=== PATIENT | male | born 1975 | race Caucasian/White ===

== ENCOUNTER 2017-01-30 19:03 | Emergency (ER) | payer OTHER ==
[2017-01-30] MEDS ORDERED: DIAZEPAM 5 MG/ML SYRG ONE (19:06)
[2017-01-30] MEDS: DIAZEPAM 5 MG/ML SYRG IV ONE ×2 (19:08→19:26)
[2017-01-30] MEDS ORDERED: NORMAL SALINE 1,000 ML IV ONE (19:12)
[2017-01-30 19:25] LABS: Hematocrit 46.1 % (42.0-52.0); Hemoglobin 15.9 gm/dL (13.5-18.0); Mean Cell Volume 89.5 fl (78-100); Mean Corpuscular Hemoglobin 30.9 pg (27-31); Mean Corpuscular Hgb Conc 34.5 g/dl (32-36); Mean Platelet Volume 10.2 fl (6.0-9.5); Neutrophil # 6.9 K/mm3 (1.3-6.0); Neutrophil % 67.6 % (42-75.0); Platelet Count 268 K/mm3 (150-450); Red Blood Count 5.15 M/mm3 (4.7-6.0); Red Cell Distribution Width 12.4 % (11.5-14.0); White Blood Count 10.2 K/mm3 (4.0-10.5)
--- NOTE | 2017-01-30 19:32 | ERNOTE ---
<Avel Simmons - Last Filed: 01/30/17 19:23> Neuro HPI ER Record Presenting Symptoms: weakness, other - patient presents with seizure activity Time Seen by Provider: 01/30/17 19:10 Source: EMS notes reviewed, police Exam Limitations: clinical condition Immunizations: IMMUNIZATION HX History of Influenza Vaccine More Information Required Hx Pneumococcal Vaccination More Information Required Allergies/Adverse Reactions: Allergies Allergy/AdvReac Type Severity Reaction Status Date / Time No Known Allergies Allergy Verified 01/30/17 19:28 Home Medications: HOME MEDICATIONS Carbidopa/Levodopa 25/100 [Sinemet 25/100] 3 tab PO TID #270 tablet 05/23/15 [ Last Taken Unknown] Ondansetron [Zofran Odt] 4 mg PO Q4H PRN #10 tab 05/23/15 [Last Taken Unknown] Phenytoin Sodium Extended [Dilantin] 300 mg PO BID #60 capsule 05/23/15 [Last Taken Unknown] Tetrahydrz/Dext 70/Peg 400/Pvp [Eye Drops] 15 ml OP PRN PRN 05/23/15 [Last Taken Unknown] Phenytoin [Dilantin Suspension] 100 mg PO BID #60 tab 01/30/17 [Last Taken Unknown] - History of Present Illness Narrative: patient prisoner brought with episodes of seizures at long term unable to get hx from patient Review of Systems - Narrative Narrative: unable to have ros completed - Patient's Past Medical History Patient History - Medical: History Unknown, Seizures - Family History Father Family History - Medical: Other Mother Family History - Medical: Other - Social History Living Situations: other - Immunizations Hx Pneumococcal Vaccination: More Information Required to Determine History of Influenza Vaccine: More Information Required to Determine Physical Exam - Physical Exam General Appearance: Present: severe distress, other - patient actively sezing on arrival Eye Exam: Normal inspection: bilateral, PERRL: bilateral, EOMI: bilateral Ears, Nose, Throat: Present: normal ENT inspection Neck: Present: normal inspection, nontender Respiratory: Present: no respiratory distress, normal breath sounds, no accessory muscle use, chest nontender, lungs clear Cardiovascular/Chest: Present: regular rate, rhythm, no murmur, normal peripheral pulses Gastrointestinal/Abdominal: Present: normal bowel sounds, nontender, nondistended, soft, no organomegaly Extremity Exam: Present: normal inspection, decreased range of motion Neurological Exam: Present: motor weakness, disoriented to person, disoriented to time, disoriented to place, disoriented to situation Skin Exam: Present: normal color, warm/dry Lymphatic Exam: Present: no adenopathy ED Progress - Vital Signs Vital Signs: Vital Signs 01/30/17 01/30/17 19:10 19:22 Temperature 36.6 C Pulse Rate 108 H 104 H Respiratory 18 Rate Blood Pressure 123/73 O2 Sat by Pulse 97 Oximetry - Progress/Reassessment Chief Complaint: Seizure Activity Departure Clinical Impression: Generalized seizures - Departure Disposition: Care Home Condition: Good Instructions: Epilepsy, [id number] Prescriptions: Phenytoin [Dilantin Suspension] 100 mg PO BID #60 tab <Rachelle Byrd - Last Filed: 01/30/17 21:00> Neuro HPI ER Record Immunizations: IMMUNIZATION HX History of Influenza Vaccine More Information Required Hx Pneumococcal Vaccination More Information Required ED Progress - Vital Signs Vital Signs: Vital Signs 01/30/17 01/30/17 01/30/17 19:10 19:22 19:23 Temperature 36.6 C Pulse Rate 108 H 104 H 107 H Respiratory 18 18 Rate Blood Pressure 123/73 107/75 O2 Sat by Pulse 97 96 Oximetry 01/30/17 01/30/17 01/30/17 19:55 20:12 20:31 Temperature Pulse Rate 104 H 90 84 Respiratory 18 18 18 Rate Blood Pressure 121/81 111/72 107/70 O2 Sat by Pulse 98 96 96 Oximetry Plan - Plan Plan: Pt was seen and examined by previous examiner. History is that pt has seizures and supposed to be on Dilantin 100mg BID however has been out of his meds for the past four days. His Phenytoin level is lower than therapeutic and his head CT is negative. I discussed this case with Dr. Wayne, the neurologist at [facility] and ideally he would need Phosphenytoin 1000mg IV however I am being told by staff at this facility that Phosphenytoin is NOT available at this facility. As such he will be treated with Phenytoin 1000 mg IV and started on 100mg PO BID for maintenance
[2017-01-30 19:39] LABS: Albumin * 4.1 gm/dl (3.4-5.0); Anion Gap 23.6 mmol/L (6.8-13.8); BUN/Creatinine Ratio 15.2 (9.0-21.6); Bilirubin, Total 0.3 mg/dL (0.0-1.1); Ca. Corrected For Albumin 9.2 mg/dL (8.4-10.2); Calcium * 9.6 mg/dL (7.9-10.9); Carbon Dioxide 20.5 mmol/L (24-32.6); Potassium 4.1 mmol/L (3.4-4.6)
[2017-01-30] MEDS ORDERED: ACETAMINOPHEN 325 MG TABLET ONE (20:08)
[2017-01-30] MEDS ORDERED: ACETAMINOPHEN 325 MG TABLET PO ONE (20:09)
[2017-01-30] MEDS ORDERED: PHENYTOIN SODIUM 1,000 MG in NORMAL SALINE 50 ML IV ONE (20:58)
[2017-01-30 21:21] LABS: Cocaine Ur Negative (NEGATIVE); Urine Appearance Clear; Urine Bacteria None Seen; Urine Barbiturate Negative (NEGATIVE); Urine Benzodiazepines Positive (NEGATIVE); Urine Bilirubin Negative (NEGATIVE); Urine Blood Negative /ul (NEGATIVE); Urine Color Yellow; Urine Ketone Negative (NEGATIVE); Urine Nitrite Negative (NEGATIVE); Urine Opiates Negative (NEGATIVE); Urine PCP Negative (NEGATIVE); Urine Protein Negative (NEGATIVE); Urine RBC None Seen /hpf (0-5); Urine Specific Gravity 1.015 SP.GR. (1.005-1.030); Urine THC Negative (NEGATIVE); Urine Urobilinogen Normal (NORMAL); Urine WBC None Seen /hpf (0-5); Urine pH 6.5 pH (5.0-7.0)
[2017-01-30] MEDS ORDERED: KETOROLAC TROMETHAMINE 30 MG/ML VIAL IV ONE (22:39)
[2017-01-30] MEDS ORDERED: KETOROLAC TROMETHAMINE 30 MG/ML VIAL ONE (22:46)
[2017-01-30 23:11] VITALS: BP 116/78
== END 2017-01-30 23:01 ==
LOC: ER 19:03
DX: R56.9 Unspecified convulsions (principal)

== ENCOUNTER 2017-02-01 15:38 | Emergency (ER) | payer OTHER ==
[2017-02-01] MEDS ORDERED: LORazepam 2 MG/ML DISP.SYRIN IV ONE (15:49)
--- NOTE | 2017-02-01 15:57 | ERNOTE ---
Neuro HPI ER Record Presenting Symptoms: other - seizure-like activity Time Seen by Provider: 02/01/17 15:42 Source: EMS Immunizations: IMMUNIZATION HX History of Influenza Vaccine More Information Required Hx Pneumococcal Vaccination More Information Required Allergies/Adverse Reactions: Allergies Allergy/AdvReac Type Severity Reaction Status Date / Time No Known Allergies Allergy Verified 02/01/17 15:52 Home Medications: HOME MEDICATIONS Carbidopa/Levodopa 25/100 [Sinemet 25/100] 3 tab PO TID #270 tablet 05/23/15 [ Last Taken Unknown] Phenytoin [Dilantin Suspension] 100 mg PO BID #60 tab 01/30/17 [Last Taken Unknown] Phenytoin Sodium Extended [Dilantin] 100 mg PO BIDWM #90 capsule 02/01/17 [Last Taken Unknown] - History of Present Illness Narrative: [facility] a [facility] the [facility] however when the ambulance crew arrived and started the IV he stopped seizing immediately and had no postictal period. Patient was apparently having a full tonic-clonic seizure without having a postictal period subsequent to the seizure. Onset: sudden onset Severity: severe - Character of Deficits Baseline Cognition: Present: alert, oriented x 4 Baseline Gait: Present: walks w/o assistance Review of Systems - Review of Systems Constitutional: Present: See HPI EYE: Present: no symptoms reported ENT: Present: no symptoms reported Respiratory: Present: no symptoms reported Cardiology: Present: no symptoms reported Gastrointestinal/Abdominal: Present: no symptoms reported Genitourinary: Present: no symptoms reported Musculoskeletal: Present: no symptoms reported Skin: Present: no symptoms reported Neurological: Present: seizure Endocrine: Present: no symptoms reported Hematologic/Lymphatic: Present: no symptoms reported Psych: Present: no symptoms reported - Patient's Past Medical History Patient History - Medical: History Unknown, Seizures - Family History Father Family History - Medical: Other Mother Family History - Medical: Other - Social History Living Situations: other - Immunizations Hx Pneumococcal Vaccination: More Information Required to Determine History of Influenza Vaccine: More Information Required to Determine Physical Exam - Physical Exam General Appearance: Present: moderate distress, other - patient had another apparent tonic-clonic seizure in the ED with no postictal period Head Exam: Present: normal inspection Ears, Nose, Throat: Present: normal ENT inspection Neck: Present: normal inspection Respiratory: Present: no respiratory distress Cardiovascular/Chest: Present: regular rate, rhythm Gastrointestinal/Abdominal: Present: normal bowel sounds Rectal Exam: Present: deferred Back Exam: Present: normal inspection Extremity Exam: Present: normal inspection Skin Exam: Present: normal color ED Progress - Results and Orders Patient's Lab Results:: I have reviewed the patient's lab results. - Vital Signs Patient's Vital Signs:: I have reviewed the patient's vital signs. Vital Signs: Vital Signs 02/01/17 15:41 Temperature 37.0 C Pulse Rate 98 Respiratory 10 L Rate Blood Pressure 109/75 O2 Sat by Pulse 98 Oximetry - Progress/Reassessment Chief Complaint: Seizure Activity Progress:: Improved Plan - Plan Plan: Patient was given a milligram of Ativan, 1 gram of Keppra and as his Dilantin level is subtherapeutic he was given 500 mg of Dilantin in the ER. It appear that the seizure-like activity has ceased. I will increase the Dilantin to 200 mg in the morning and 100 mg in the evening which she get him therapeutic. Departure Clinical Impression: Seizure, Generalized seizures - Departure Disposition: [facility] Condition: Good Instructions: Epilepsy, [id number] Additional Instructions: 200 mg Dilantin in the morning and 100 mg of Dilantin in the evening Prescriptions: Phenytoin Sodium Extended [Dilantin] 100 mg PO BIDWM #90 capsule
[2017-02-01] MEDS ORDERED: CARBIDOPA/LEVODOPA CR 25/100 1 TAB TABLET.SA PO SCH (16:00)
[2017-02-01] MEDS ORDERED: PHENYTOIN SODIUM 50 MG/ML IV ONE (16:44)
[2017-02-01] MEDS ORDERED: PHENYTOIN SODIUM IV ONE (17:30)
[2017-02-01] MEDS ORDERED: NORMAL SALINE IV ONE (17:30)
[2017-02-01 17:33] VITALS: BP 102/71
[2017-02-01] MEDS ORDERED: ACETAMINOPHEN 500 MG TABLET PO ONE (17:39)
== END 2017-02-01 17:43 ==
LOC: ER 15:38
DX: R56.9 Unspecified convulsions (principal)

== ENCOUNTER 2017-02-02 23:01 | Emergency (ER) | payer OTHER ==
[2017-02-02] MEDS ORDERED: LORazepam 2 MG/ML DISP.SYRIN ONE (23:10)
[2017-02-02] MEDS ORDERED: LORazepam 2 MG/ML DISP.SYRIN IV ONE (23:11)
--- NOTE | 2017-02-02 23:37 | ERNOTE ---
Neuro HPI ER Record Presenting Symptoms: other - seizure activity Time Seen by Provider: 02/02/17 23:27 Source: EMS Exam Limitations: no limitations Immunizations: IMMUNIZATION HX History of Influenza Vaccine More Information Required Hx Pneumococcal Vaccination More Information Required Allergies/Adverse Reactions: Allergies Allergy/AdvReac Type Severity Reaction Status Date / Time No Known Allergies Allergy Verified 02/02/17 23:12 Home Medications: HOME MEDICATIONS Phenytoin Sodium Extended [Dilantin] 200 mg PO DAILY 02/02/17 [Last Taken Unknown] Phenytoin [Dilantin Suspension] 100 mg PO HS 02/02/17 [Last Taken Unknown] - History of Present Illness Narrative: corrections officers report 10 seizures before EMS arrived. EMS gave 4 mg versed intranasal. Staff report a siezure soon after arriving in the ED. Pt now talking and alert although somewhat drowsy. Onset: sudden onset Severity: moderate - Character of Deficits Baseline Cognition: Present: alert, oriented x 4 Baseline Gait: Present: walks w/o assistance Review of Systems - Review of Systems Constitutional: Absent: recent illness EYE: Present: no symptoms reported ENT: Present: no symptoms reported Gastrointestinal/Abdominal: Present: nausea, vomiting Genitourinary: Present: no symptoms reported Musculoskeletal: Present: back pain, muscle pain Skin: Present: no symptoms reported Neurological: Present: See HPI, seizure Endocrine: Present: no symptoms reported Hematologic/Lymphatic: Present: no symptoms reported Psych: Present: no symptoms reported - Patient's Past Medical History Patient History - Medical: History Unknown, Seizures, Other - Parkinsons Patient History - Cardiac/Respiratory: No pertinent hx Patient History - Cancer: No Hx of Cancer - Family History Father Family History - Medical: Other Mother Family History - Medical: Other - Social History Living Situations: other - Immunizations Hx Pneumococcal Vaccination: More Information Required to Determine History of Influenza Vaccine: More Information Required to Determine Physical Exam - Physical Exam General Appearance: Present: wd/wn, no apparent distress Head Exam: Present: normal inspection, no evidence of injury Eye Exam: Normal inspection: bilateral, PERRL: bilateral, EOMI: bilateral Ears, Nose, Throat: Present: normal ENT inspection, other - No oral trauma Neck: Present: normal inspection, nontender Respiratory: Present: no respiratory distress, no accessory muscle use, lungs clear Cardiovascular/Chest: Present: regular rate, rhythm, no murmur Gastrointestinal/Abdominal: Present: normal bowel sounds, nontender, nondistended Back Exam: Present: normal inspection, normal range of motion Extremity Exam: Present: normal inspection, normal range of motion Neurological Exam: Present: alert, oriented Skin Exam: Present: normal color, warm/dry Lymphatic Exam: Present: no adenopathy Gaby Coma Scale - Assess Eye Opening: Spontaneous - between seizures after post ictal period Motor: Obeys Commands Verbal: Oriented - Total Coma Scale Total: 15 ED Progress - Results and Orders Patient's Lab Results:: I have reviewed the patient's lab results. Results and Orders: Laboratory Tests 02/02/17 02/02/17 02/02/17 23:44 23:44 23:44 WBC 7.7 Hgb 14.2 Hct 41.7 L Plt Count 187 ESR 11 H Sodium 142 Potassium 4.0 Chloride 103 Carbon Dioxide 26.9 Anion Gap 16.1 H BUN 20 Creatinine 1.25 Random Glucose 106 Calcium 9.1 Total Bilirubin 0.2 AST 21 ALT 30 Alkaline Phosphatase 76 C-Reactive Prot, Quant Less than 0.2 Total Protein 7.2 Albumin 3.7 Phenytoin 8.9 L - Vital Signs Patient's Vital Signs:: I have reviewed the patient's vital signs. Vital Signs: Vital Signs 02/02/17 02/02/17 02/02/17 23:03 23:14 23:27 Temperature 37.0 C Pulse Rate 114 H 115 H 111 H Respiratory 14 15 Rate Blood Pressure 128/80 120/74 112/75 O2 Sat by Pulse 95 92 95 Oximetry - Progress/Reassessment Chief Complaint: Seizure Activity Progress Note-Subjective: 02/03/17 02:[address] Barbara Pacheco at [facility]. She agrees to accept patient in transfer. 02/03/17 02:46 Pt had another seizure while I was on the phone and given another 2 mg ativan IV and Keppra 500 mg IV ordered Departure Clinical Impression: Generalized seizures - Departure Disposition: [facility] Condition: Fair
[2017-02-02 23:47] LABS: Hematocrit 41.7 % (42.0-52.0); Hemoglobin 14.2 gm/dL (13.5-18.0); Mean Cell Volume 88.9 fl (78-100); Mean Corpuscular Hemoglobin 30.3 pg (27-31); Mean Corpuscular Hgb Conc 34.1 g/dl (32-36); Mean Platelet Volume 9.8 fl (6.0-9.5); Neutrophil # 4.6 K/mm3 (1.3-6.0); Neutrophil % 59.5 % (42-75.0); Platelet Count 187 K/mm3 (150-450); Red Blood Count 4.69 M/mm3 (4.7-6.0); Red Cell Distribution Width 12.5 % (11.5-14.0); White Blood Count 7.7 K/mm3 (4.0-10.5)
[2017-02-03 00:01] LABS: ALT 30 U/L (19-67); AST 21 U/L (0-48); Albumin * 3.7 gm/dl (3.4-5.0); Alkaline Phosphatase * 76 U/L (50-170); Anion Gap 16.1 mmol/L (6.8-13.8); Bilirubin, Total 0.2 mg/dL (0.0-1.1); Blood Urea Nitrogen 20 mg/dL (6-23); Calcium * 9.1 mg/dL (7.9-10.9); Carbon Dioxide 26.9 mmol/L (24-32.6); Chloride 103 mmol/L (97-106); Glucose * 106 mg/dL (70-110); Phenytoin 8.9 mcg/mL (10-20); Sodium 142 mmol/L (132-142); Total Protein 7.2 gm/dL (6.2-8.2)
[2017-02-03] MEDS ORDERED: LORazepam 2 MG/ML DISP.SYRIN ONE (02:40)
[2017-02-03] MEDS ORDERED: LORazepam 2 MG/ML DISP.SYRIN IV ONE (02:41)
[2017-02-03 02:56] VITALS: BP 122/82
== END 2017-02-03 03:05 | disposition short-term general hospital (02) ==
LOC: ER 23:01
DX: G40.89 Other seizures (principal)

== ENCOUNTER 2017-02-04 15:20 | Emergency (ER) | payer OTHER ==
--- NOTE | 2017-02-04 15:40 | ERNOTE ---
Neuro HPI ER Record Presenting Symptoms: other - seizure Time Seen by Provider: 02/04/17 15:28 Source: EMS Exam Limitations: clinical condition Immunizations: IMMUNIZATION HX Immunizations Up to Date Yes History of Influenza Vaccine More Information Required Hx Pneumococcal Vaccination More Information Required Allergies/Adverse Reactions: Allergies Allergy/AdvReac Type Severity Reaction Status Date / Time No Known Allergies Allergy Verified 02/02/17 23:12 Home Medications: HOME MEDICATIONS Phenytoin Sodium Extended [Dilantin] 200 mg PO DAILY 02/02/17 [Last Taken Unknown] Phenytoin [Dilantin Suspension] 100 mg PO HS 02/02/17 [Last Taken Unknown] - History of Present Illness Narrative: Patient has a 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 He has had three ER visits earlier this week for seizures, was transferred to [facility] two days ago and discharged from there this morning. On the way back to [facility] he had another seizure and was brought this ER, alert and oriented on arrival, no medication adjustments while at [facility] - Character of Deficits Baseline Cognition: Present: alert, oriented x 4 Baseline Gait: Present: walks w/o assistance Prior Treament: Reports: recently seen, similar symptoms before Review of Systems - Review of Systems Constitutional: Present: recent illness. Absent: fever Respiratory: Absent: shortness of breath Cardiology: Absent: chest pain Gastrointestinal/Abdominal: Absent: nausea, vomiting, abdominal pain - Patient's Past Medical History Patient History - Medical: Anxiety, Depression, Seizures, Other Patient History - Cardiac/Respiratory: No pertinent hx Patient History - Cancer: No Hx of Cancer Patient History - Surgical Procedures: No surgical history Patient History - Other: None - Family History Father Family History - Medical: Other Mother Family History - Medical: Other - Social History Living Situations: other Abuse History: No History of abuse Psych History: Hx of Anxiety, Hx of Depression Smoking Status: Former smoker Drug Use: meth - Immunizations Immunizations Up to Date: Yes Hx Pneumococcal Vaccination: More Information Required to Determine History of Influenza Vaccine: More Information Required to Determine Physical Exam - Physical Exam General Appearance: Present: wd/wn, alert, no apparent distress Head Exam: Present: normal inspection, no evidence of injury Eye Exam: Normal inspection: bilateral, PERRL: bilateral Ears, Nose, Throat: Present: normal pharynx Respiratory: Present: no respiratory distress, normal breath sounds, no accessory muscle use, lungs clear Cardiovascular/Chest: Present: regular rate, rhythm, no murmur Gastrointestinal/Abdominal: Present: nontender, nondistended, soft Extremity Exam: Present: no edema Neurological Exam: Present: alert, oriented, normal mood/affect Skin Exam: Present: normal color, warm/dry Gaby Coma Scale - Assess Eye Opening: Spontaneous Motor: Obeys Commands Verbal: Oriented - Total Coma Scale Total: 15 ED Progress - Results and Orders Patient's Lab Results:: I have reviewed the patient's lab results. - Vital Signs Patient's Vital Signs:: I have reviewed the patient's vital signs. Vital Signs: Vital Signs 02/04/17 15:27 Temperature 36.9 C Pulse Rate 87 Respiratory 11 L Rate Blood Pressure 132/78 O2 Sat by Pulse 100 Oximetry - Progress/Reassessment Chief Complaint: Seizure Activity Progress Note-Subjective: 02/04/17 16:40 patient has brief seizure with small movements (possible pseudoseizure?) 02/04/17 16:49 patient had two generalized seizures back to back lasting about one minute each , no reaction with having nasal trumpet inserted back into his right nare, urinary incontinence 02/04/17 17:10 call to [facility] 02/04/17 17:[address] ([facility] accepted patient for transfer 02/04/17 18:00 patient is being released by on furlough Departure Clinical Impression: Generalized seizures - Departure Disposition: [facility] Condition: Fair
[2017-02-04 16:00] LABS: Hemoglobin 14.1 gm/dL (13.5-18.0); Mean Cell Volume 91.1 fl (78-100); Mean Corpuscular Hemoglobin 30.6 pg (27-31); Mean Corpuscular Hgb Conc 33.6 g/dl (32-36); Mean Platelet Volume 10.1 fl (6.0-9.5); Neutrophil # 3.6 K/mm3 (1.3-6.0); Neutrophil % 61.5 % (42-75.0); Platelet Count 178 K/mm3 (150-450); Red Blood Count 4.61 M/mm3 (4.7-6.0); Red Cell Distribution Width 12.6 % (11.5-14.0); White Blood Count 5.9 K/mm3 (4.0-10.5)
[2017-02-04 16:24] LABS: Albumin * 3.5 gm/dl (3.4-5.0); BUN/Creatinine Ratio 16.5 (9.0-21.6); Bilirubin, Total 0.2 mg/dL (0.0-1.1); Ca. Corrected For Albumin 9.2 mg/dL (8.4-10.2); Calcium * 9.1 mg/dL (7.9-10.9); Phenytoin 9.4 mcg/mL (10-20); Potassium 4.4 mmol/L (3.4-4.6)
[2017-02-04 16:28] LABS: Anion Gap 12.9 mmol/L (6.8-13.8); Carbon Dioxide 28.5 mmol/L (24-32.6)
[2017-02-04] MEDS ORDERED: LORazepam 2 MG/ML DISP.SYRIN ONE (16:44)
[2017-02-04] MEDS ORDERED: LORazepam 2 MG/ML DISP.SYRIN IV ONE (16:45)
[2017-02-04] MEDS ORDERED: PHENYTOIN SODIUM 50 MG/ML IV ONE (17:01)
[2017-02-04] MEDS ORDERED: PHENYTOIN SODIUM IV ONE (17:30)
[2017-02-04] MEDS ORDERED: NORMAL SALINE IV ONE (17:30)
[2017-02-04] MEDS ORDERED: PHENYTOIN SODIUM 50 MG/ML ONE (17:55)
[2017-02-04] MEDS ORDERED: ONDANSETRON HCL/PF 2 MG/ML VIAL ONE (18:19)
[2017-02-04] MEDS ORDERED: ONDANSETRON HCL/PF 2 MG/ML VIAL IV ONE (18:22)
[2017-02-04 20:22] VITALS: BP 110/74
== END 2017-02-04 18:45 | disposition short-term general hospital (02) ==
LOC: ER 15:20
DX: R56.9 Unspecified convulsions (principal); Z87.891 Personal history of nicotine dependence
CPT/HCPCS: 36415; 80053; 80185; 85025; 96365; 96375; 99283; J2405

== ENCOUNTER 2017-02-07 13:55 | Inpatient (IN) | payer OTHER ==
[2017-02-07] MEDS ORDERED: NORMAL SALINE 1,000 ML IV ONE (14:19)
[2017-02-07] MEDS ORDERED: LORazepam 2 MG/ML DISP.SYRIN ONE (14:25)
[2017-02-07 14:26] LABS: Hematocrit 42.6 % (42.0-52.0); Hemoglobin 14.6 gm/dL (13.5-18.0); Mean Cell Volume 90.6 fl (78-100); Mean Corpuscular Hemoglobin 31.1 pg (27-31); Mean Corpuscular Hgb Conc 34.3 g/dl (32-36); Mean Platelet Volume 9.9 fl (6.0-9.5); Neutrophil # 3.4 K/mm3 (1.3-6.0); Neutrophil % 63.8 % (42-75.0); Platelet Count 214 K/mm3 (150-450); Red Cell Distribution Width 12.9 % (11.5-14.0); White Blood Count 5.4 K/mm3 (4.0-10.5)
[2017-02-07] MEDS ORDERED: LORazepam 2 MG/ML DISP.SYRIN IV ONE (14:26)
[2017-02-07 14:44] LABS: Urine Bilirubin Negative (NEGATIVE); Urine Ketone Negative (NEGATIVE); Urine Nitrite Negative (NEGATIVE); Urine Protein Negative (NEGATIVE); Urine Specific Gravity >=1.030 SP.GR. (1.005-1.030); Urine Urobilinogen Normal (NORMAL)
[2017-02-07 14:49] LABS: Urine Blood 5 /ul (NEGATIVE)
[2017-02-07 14:52] LABS: Urine Appearance Clear; Urine Bacteria None Seen; Urine Color Yellow; Urine RBC 0-5 /hpf (0-5); Urine WBC None Seen /hpf (0-5)
[2017-02-07 14:53] LABS: Albumin * 3.8 gm/dl (3.4-5.0); Anion Gap 14.9 mmol/L (6.8-13.8); BUN/Creatinine Ratio 16.1 (9.0-21.6); Bilirubin, Total 0.2 mg/dL (0.0-1.1); Ca. Corrected For Albumin 8.8 mg/dL (8.4-10.2); Carbon Dioxide 27.6 mmol/L (24-32.6); Phenytoin 18.7 mcg/mL (10-20); Potassium 4.5 mmol/L (3.4-4.6); Total Protein 7.2 gm/dL (6.2-8.2)
[2017-02-07 14:57] LABS: Cocaine Ur Negative (NEGATIVE); Urine Barbiturate Negative (NEGATIVE); Urine Opiates Negative (NEGATIVE); Urine PCP Negative (NEGATIVE); Urine THC Negative (NEGATIVE)
[2017-02-07 14:58] LABS: Urine Benzodiazepines Positive (NEGATIVE)
--- NOTE | 2017-02-07 15:24 | ERNOTE ---
Neuro HPI ER Record Date of Service: 02/07/17 Presenting Symptoms: other - seizures Time Seen by Provider: 02/07/17 14:17 Source: patient, other - officers Exam Limitations: clinical condition Immunizations: IMMUNIZATION HX Immunizations Up to Date Yes History of Influenza Vaccine No Hx Pneumococcal Vaccination No Allergies/Adverse Reactions: Allergies Allergy/AdvReac Type Severity Reaction Status Date / Time No Known Allergies Allergy Verified 02/02/17 23:12 Home Medications: HOME MEDICATIONS Phenytoin Sodium Extended [Dilantin] 200 mg PO DAILY 02/02/17 [Last Taken Unknown] Phenytoin [Dilantin Suspension] 100 mg PO HS 02/02/17 [Last Taken Unknown] - History of Present Illness Narrative: latonya is still post ictal so difficult to obtain. he is on dilantin for seizures. he had a grand mal Sz today with a prolonged postictal state. Here he was briefly not postictal then had another grand mal seizure. IV ativan given. After this he was not seizing, post ictal state cleared, was groggy from the ativan. Denies CP or SOB. Mild COLMENARES. Has a Hx of Sz. Denies missed doses of seizure medications. Onset: gone now - Character of Deficits Baseline Gait: Present: walks w/o assistance Associated Symptoms: Denies: fever/chills, chest pain, unresponsive Prior Treament: Reports: recently seen Review of Systems - Narrative Narrative: difficult to obtain d/t seizure activity, ativan administration and clinical condition - Review of Systems Constitutional: Absent: fever - Patient's Past Medical History Patient History - Medical: Anxiety, Depression, Seizures, Other Patient History - Cardiac/Respiratory: No pertinent hx Patient History - Cancer: No Hx of Cancer Patient History - Surgical Procedures: No surgical history Patient History - Other: None - Family History Father Family History - Medical: Other Mother Family History - Medical: Other - Social History Living Situations: home Abuse History: No History of abuse Psych History: Hx of Anxiety, Hx of Depression Smoking Status: Former smoker Have you smoked in the past 12 months: No Do you dip or chew tobacco: No Alcohol Use: none Drug Use: meth - Immunizations Immunizations Up to Date: Yes Hx Pneumococcal Vaccination: No History of Influenza Vaccine: No Physical Exam - Physical Exam General Appearance: Present: other - sleepy after the ativan. No active seizing now. Head Exam: Present: normal inspection, no evidence of injury Eye Exam: Normal inspection: bilateral, PERRL: bilateral Ears, Nose, Throat: Present: normal ENT inspection Neck: Present: normal inspection Respiratory: Present: no respiratory distress, normal breath sounds, no accessory muscle use, lungs clear Cardiovascular/Chest: Present: regular rate, rhythm, normal peripheral pulses Gastrointestinal/Abdominal: Present: normal bowel sounds, nontender, nondistended, soft. Absent: tenderness Back Exam: Absent: CVA tenderness (R), CVA tenderness (L) Extremity Exam: Present: normal inspection Neurological Exam: Present: no motor/sensory deficits, recordist II-XII nml as tested , other - no unilateral focal motor or sensory deficits Skin Exam: Present: normal color, warm/dry ED Progress - Results and Orders Patient's Lab Results:: I have reviewed the patient's lab results. - Vital Signs Patient's Vital Signs:: I have reviewed the patient's vital signs. Vital Signs: Vital Signs 02/07/17 02/07/17 02/07/17 13:56 13:58 14:01 Temperature 36.7 C 37.0 C Pulse Rate 92 90 Respiratory 12 13 Rate Blood Pressure 114/67 114/67 O2 Sat by Pulse 98 100 Oximetry 02/07/17 14:31 Temperature Pulse Rate 90 Respiratory 20 Rate Blood Pressure 120/69 O2 Sat by Pulse 100 Oximetry - Progress/Reassessment Chief Complaint: Seizure Activity Progress Note-Subjective: 02/07/17 15:22 Patietn has recurrent Sz, no active seizing. needs obs. D/W Barbara Sanches, Hospitalist who will admit. No suggestion of status epilepticus, meningitis or need for head CT. 02/07/17 15:23 Departure Clinical Impression: Recurrent seizures - Departure Disposition: [facility] Condition: Stable
[2017-02-07] MEDS: PHENYTOIN SODIUM EXTENDED 100 MG CAPSULE PO SCH (16:40)
--- NOTE | 2017-02-07 17:56 | HP ---
Chief Complaint - Chief Complaint Date of Service: 02/07/17 Time of Service: 17:45 Chief Complaint: seizure activity History of Present Illness: German is a 41 year old male raphael of the intermediate system with a PMH of chronic seizures, drug abuse (meth), anxiety and depression who presented to the ER with active seizures. Ativan given IV in the ER with a liter of NS and the patient has had no seizure since. Patient hit head during seizure at intermediate but CT of the head was non-acute. Dilantin level came back at 18.2. Patient to be admitted with seizure disorder for observation. - Patient's Past Medical History Patient History - Medical: Anxiety, Depression, Seizures, Other Patient History - Cardiac/Respiratory: No pertinent hx Patient History - Cancer: No Hx of Cancer Patient History - Surgical Procedures: No surgical history Patient History - Other: None - Family History Father Family History - Medical: Family History - Cardiac/Respiratory: Aneurysm, Hypertension Mother Family History - Medical: Other - Social History Living Situations: other Abuse History: No History of abuse Psych History: Hx of Anxiety, Hx of Depression Smoking Status: Current every day smoker Have you smoked in the past 12 months: Yes Do you dip or chew tobacco: No Patient requests Smoking Cessation Consult: No Initiate information on Smoking Cessation: No Alcohol Use: none Drug Use: meth - Immunizations Immunizations Up to Date: Yes Hx Pneumococcal Vaccination: No History of Influenza Vaccine: No Review Of Systems (GEN) - Review of Systems Generalized/Overall Review: Present: No Symptoms Reported EENTM: Present: No Symptoms Reported Respiratory: Present: No Symptoms Reported Cardiac: Present: No Symptoms Reported Abdominal: Present: No Symptoms Reported Genitourinary: Present: No Symptoms Reported Musculoskeletal: Present: No Symptoms Reported Neurological: Present: Headache Skin: Present: No Symptoms Reported Endocrine: Present: No Symptoms Reported Misc: All systems neg except as marked Immunizations: IMMUNIZATION HX Immunizations Up to Date Yes History of Influenza Vaccine No Hx Pneumococcal Vaccination No Allergies/Adverse Reactions: Allergies Allergy/AdvReac Type Severity Reaction Status Date / Time No Known Allergies Allergy Verified 02/07/17 16:12 Home Medications: HOME MEDICATIONS Phenytoin Sodium Extended [Dilantin] 200 mg PO DAILY 02/02/17 [Last Taken Unknown] Phenytoin [Dilantin Suspension] 100 mg PO HS 02/02/17 [Last Taken Unknown] Exam - Exam Vital Signs: Vital Signs - Last Taken Temp 36.7 C 02/07/17 16:19 Pulse 81 02/07/17 16:19 Resp 18 02/07/17 16:19 BP 89/48 02/07/17 16:19 Pulse Ox 98 02/07/17 16:19 Constitutional: Present: Cooperative, No distress, Lethargic ENT Exam: Present: hard of hearing Eye Exam: bilateral eye: normal inspection Neck: Present: supple Back Exam: Present: no vertebral tenderness Respiratory: Present: normal breath sounds, no respiratory distress, no accessory muscle use Cardiovascular/Chest: Present: normal peripheral pulses, regular rate, rhythm, no edema, no JVD Peripheral Pulses: carotid (R): 2+, carotid (L): 2+, dorsalis-pedis (R): 2+, dorsalis-pedis (L): 2+, radial (R): 2+, radial (L): 2+ Abdomen: Present: soft, nontender, nondistended /Rectal: Present: Exam deferred Extremity: Present: non-tender, normal inspection Skin Exam: Present: normal color, warm/dry, no cyanosis Neurologic: Present: foot and ankle surgeon II-XII nml as tested, oriented x 3. Absent: facial droop, sensory deficit Diagnostic Studies: Laboratory Results WBC 5.4 K/mm3 (4.0-10.5) 02/07/17 14:25 RBC 4.70 M/mm3 (4.7-6.0) 02/07/17 14:25 Hgb 14.6 gm/dL (13.5-18.0) 02/07/17 14:25 Hct 42.6 % (42.0-52.0) 02/07/17 14:25 MCV 90.6 fl (78-100) 02/07/17 14:25 MCH 31.1 pg (27-31) H 02/07/17 14:25 MCHC 34.3 g/dl (32-36) 02/07/17 14:25 RDW 12.9 % (11.5-14.0) 02/07/17 14:25 Plt Count 214 K/mm3 (150-450) 02/07/17 14:25 MPV 9.9 fl (6.0-9.5) H 02/07/17 14:25 Immature Gran % (Auto) 0.40 % (0.001-0.429) 02/07/17 14:25 Immature Gran # (Auto) 0.02 K/mm3 (0.000-0.0310) 02/07/17 14:25 Neutrophils % 63.8 % (42-75.0) 02/07/17 14:25 Lymphocytes % 21.6 % (20-51) 02/07/17 14:25 Monocytes % 9.3 % (0.0-9) H 02/07/17 14:25 Eosinophils % 4.3 % (0.0-3.0) H 02/07/17 14:25 Basophils % 0.6 % (0.0-1.0) 02/07/17 14:25 Nucleated RBC % 0.0 k/mm3 (0-1) 02/07/17 14:25 Neutrophils # 3.4 K/mm3 (1.3-6.0) 02/07/17 14:25 Lymphocytes # 1.2 k/mm3 (1.5-3.5) L 02/07/17 14:25 Monocytes # 0.5 k/mm3 (0.0-1.0) 02/07/17 14:25 Eosinophils # 0.2 k/mm3 (0.0-0.7) 02/07/17 14:25 Absolute Basophils 0.0 k/mm3 (0.0-0.1) 02/07/17 14:25 Sodium 142 mmol/L (132-142) 02/07/17 14:25 Plasma Sodium 142 mmol/L (130-142) 02/07/17 14:25 Potassium 4.5 mmol/L (3.4-4.6) 02/07/17 14:25 Chloride 104 mmol/L (97-106) 02/07/17 14:25 Carbon Dioxide 27.6 mmol/L (24-32.6) 02/07/17 14:25 Anion Gap 14.9 mmol/L (6.8-13.8) H 02/07/17 14:25 BUN 19 mg/dL (6-23) 02/07/17 14:25 Creatinine 1.18 mg/dL (0.4-1.4) 02/07/17 14:25 Est GFR (Non-Af Amer) 72 mL/min (60-130) 02/07/17 14:25 BUN/Creatinine Ratio 16.1 (9.0-21.6) 02/07/17 14:25 Random Glucose 110 mg/dL (70-110) 02/07/17 14:25 Calcium 9.0 mg/dL (7.9-10.9) 02/07/17 14:25 Calcium Adj for Albumin 8.8 mg/dL (8.4-10.2) 02/07/17 14:25 Total Bilirubin 0.2 mg/dL (0.0-1.1) 02/07/17 14:25 AST 30 U/L (0-48) 02/07/17 14:25 ALT 41 U/L (19-67) 02/07/17 14:25 Alkaline Phosphatase 85 U/L (50-170) 02/07/17 14:25 Total Protein 7.2 gm/dL (6.2-8.2) 02/07/17 14:25 Albumin 3.8 gm/dl (3.4-5.0) 02/07/17 14:25 Urine Color Yellow 02/07/17 14:36 Urine Appearance Clear 02/07/17 14:36 Urine pH 6.0 pH (5.0-7.0) 02/07/17 14:36 Ur Specific [place] >=1.030 SP.GR. (1.005-1.030) 02/07/17 14:36 Urine Protein Negative mg/dL (NEGATIVE) 02/07/17 14:36 Urine Glucose (UA) Negative mg/dL (NEGATIVE) 02/07/17 14:36 Urine Ketones Negative mg/dL (NEGATIVE) 02/07/17 14:36 Urine Blood 5 /ul (NEGATIVE) H 02/07/17 14:36 Urine Nitrate Negative (NEGATIVE) 02/07/17 14:36 Urine Bilirubin Negative mg/dl (NEGATIVE) 02/07/17 14:36 Urine Urobilinogen Normal EU/dl (NORMAL) 02/07/17 14:36 Ur Leukocyte Esterase Negative /ul (NEGATIVE) 02/07/17 14:36 Urine RBC 0-5 /hpf (0-5) 02/07/17 14:36 Urine WBC None seen /hpf (0-5) 02/07/17 14:36 Ur Epithelial Cells None seen /hpf (0-5) 02/07/17 14:36 Urine Bacteria None seen (NONE) 02/07/17 14:36 Urine Culture Comments Culture to follow 02/07/17 14:36 Urine Opiates Screen Negative (NEGATIVE) 02/07/17 14:36 Barbiturate Screen Negative (NEGATIVE) 02/07/17 14:36 Phenytoin 18.7 mcg/mL (10-20) 02/07/17 14:25 Ur Phencyclidine Scrn Negative (NEGATIVE) 02/07/17 14:36 Urine Amphetamine Negative (NEGATIVE) 02/07/17 14:36 U Benzodiazepines Scrn Positive (NEGATIVE) H 02/07/17 14:36 Urine Cocaine Screen Negative (NEGATIVE) 02/07/17 14:36 Urine Marijuana (THC) Negative (NEGATIVE) 02/07/17 14:36 Assessment/Plan - Narrative Narrative: Seizure disorder with acute seizures - increase Dilantin to 200 mg BID - keep patient NPO this evening to make sure he does not have another seizure - IV fluids started for hydration - monitor on telemetry - may have ice chips - seizure precautions. - ativan iv as needed if seizures reoccur. Plan: observe patient overnight. if he remains seizure free on increased dose of dilantin, discharge back to intermediate in am. - Assessment/Plan (1) Generalized seizures Problem: Acute (2) Anxiety and depression Problem: Chronic (3) Drug abuse Problem: Chronic
[2017-02-07] MEDS: DEXTROSE 5%-NORMAL SALINE 1,000 ML IV PRN (18:58)
[2017-02-07] MEDS ORDERED: FLU VACC QS2017-18(6MOS UP)/PF 60 MCG/0.5 ML SYRINGE IM ONE (20:00)
[2017-02-07] MEDS: LORazepam 2 MG/ML DISP.SYRIN IV PRN ×2 (21:50→22:02)
[2017-02-08] MEDS: DEXTROSE 5%-NORMAL SALINE 1,000 ML IV PRN ×2 (04:02→13:48)
[2017-02-08] MEDS: PHENYTOIN SODIUM EXTENDED 100 MG CAPSULE PO SCH ×2 (09:48→16:22)
--- NOTE | 2017-02-08 11:25 | PN ---
Subjective - Date and Time Seen Date: 02/08/17 Time: 11:20 Subjective Narrative: The patient had recurrent seizure activities last night and was controlled with IV ativan. Objective - Review of Systems Generalized/Overall Review: Reports: Weakness. Denies: Chills, Fever EENTM: Reports: No Symptoms Reported Respiratory: Denies: Cough, Shortness of Breath Cardiac: Denies: Chest Pain, Palpitations Abdominal: Denies: Nausea, Vomiting Genitourinary Symptoms: Denies: Urgency, Frequency Neurological: Reports: Seizure - Vitals Vitals: Last Vital Signs Temp 36.7 C 02/08/17 09:46 Pulse 75 02/08/17 10:38 Resp 18 02/08/17 09:46 BP 104/56 02/08/17 09:46 Pulse Ox 96 02/08/17 09:46 - Exam Constitutional: Present: Alert, Oriented x3, Cooperative ENT Exam: Present: hearing grossly normal Neck: Present: supple Breasts: Present: Exam deferred Respiratory: Present: normal breath sounds, No rales, No wheezing Cardiovascular/Chest: Present: regular rate, rhythm, no JVD, no murmur Abdomen: Present: Normal bowel sounds, soft, nontender, nondistended Extremity: Present: no pedal edema, no calf tenderness Assessment/Plan - Problems/Diagnosis (1) Recurrent seizures Problem: Acute Narrative: Roseanne was added to dilantin. Will do EEG. will transfer him to acute status. (2) Anxiety and depression Problem: Chronic
[2017-02-08 16:08] VITALS: BP 107/72
[2017-02-08] MEDS ORDERED: ACETAMINOPHEN 500 MG TABLET PO PRN (16:08)
--- NOTE | 2017-02-12 15:05 | DS ---
(1) Recurrent seizures Problem: Acute (2) Anxiety and depression Problem: Chronic Description of Stay: German Mason, is a 41 year old male, raphael of the half-way system, with a PMH of chronic seizures, drug abuse (meth), anxiety and depression who presented to the ER on 02/07/2017 with active seizures. Ativan given IV in the ER with a liter of NS and the patient has had no seizure since. Patient hit head during seizure at half-way but CT of the head was non-acute. Dilantin level came back at 18.2. Patient was admitted with seizure disorder for observation. During his stay in the hospital he was again noticed to have had 2 episodes of seizures which responded to Ativan. Keppra was added as his Dilantin level was therapeutic. His stay was changed to acute status. EAEG was ordered . As soon the deputy released him from theri custody, he ripped his IV line and decided he was going AMA despite warning of him of the possible serious and adverse consequences. . His EEG showed normal and drowsy EEG. Procedures Performed: none Discharge Disposition: AMA Disposition: Against medical advice Condition: Stable Discharge Activity: Activity as tolerated Discharge Diet: General/regular food Complete Home Medications List: Complete Home Medication List: Phenytoin Sodium Extended [Dilantin] 300 mg PO BID 02/08/17 [id number] HCL [Librium] 25 mg PO BID 02/08/17
== END 2017-02-08 17:05 | disposition left against medical advice (07) | DRG 101 ==
LOC: ER 13:55 → MS 15:18 → UNDOADMOB 15:18 → OBSVTOIN 02-08 09:07
PROVIDERS: ADMIT Nurse Practitioner Critical Care Medicine; ATTEND Internal Medicine
DX: G40.409 Other generalized epilepsy and epileptic syndromes, not intractable, without status epilepticus (principal); F41.8 Other specified anxiety disorders; F15.10 Other stimulant abuse, uncomplicated; F17.210 Nicotine dependence, cigarettes, uncomplicated; Z23 Encounter for immunization
CPT/HCPCS: 36415; 51701; 80053; 80185; 80307; 81001; 85025; 87086; 90686; 95812; 96374; 99285; G0008; G0378